=== PATIENT | male | born 1950 | race Caucasian/White ===

== ENCOUNTER 2022-09-12 18:29 | Emergency (ER) | payer OTHER, MEDICARE ==
[2022-09-12] MEDS: Albuterol/Ipratropium 3.0-0.5 MG/3 ML Neb Soln NEB ONE (20:00)
[2022-09-12] MEDS: predniSONE 20 MG Tab PO ONE (20:00)
[2022-09-12 20:21] LABS: BASE EXCESS VENOUS,POC 5 mmol/L (-2 - 3+); PCO2 VENOUS,POC 62 mmHg (41-51); PH VENOUS,POC 7.34 pH Units (7.32-7.43)
[2022-09-12 20:23] LABS: ESTIMATED GFR 64 mL/min (>60)
[2022-09-12 21:29] VITALS: BP 131/60; PULSE 51
[2022-09-12] MEDS: cefTRIAXone 1 GM Vial IM ONE (23:45)
[2022-09-12] MEDS: Doxycycline 100 MG Tab PO ONE (23:46)
== END 2022-09-13 00:16 | disposition home or self-care (01) ==
LOC: FB.ED 18:29
DX: J44.1 Chronic obstructive pulmonary disease with (acute) exacerbation (principal); J18.9 Pneumonia, unspecified organism; E11.9 Type 2 diabetes mellitus without complications; Z87.891 Personal history of nicotine dependence; Z79.51 Long term (current) use of inhaled steroids
CPT/HCPCS: 36415; 71046; 80053; 83735; 84484; 85025; 85379; 86140; 93005; 93010; 96372; 99283; 99285; A9270-GY; J0696; J7512; J7620